=== PATIENT | female | born 1965 | race Caucasian/White ===

== ENCOUNTER 2016-10-28 06:12 | Day surgery (SDC) | payer BC ==
[2016-10-23 16:37] VITALS: BMI 37.8
--- NOTE | 2016-10-27 22:06 | HP ---
Past Medical History - Primary Care Physician PCP:: Corrina Garcias - Admission Chief Complaint: Irregular bleeding History of Present Illness: 51 year old white female G3,Ab2,P1 who was seen on August 14, 2016 complaining of irregular heavy vaginal bleeding. She reported bleeding on July 18 with spotting and then bled 4 to 5 days. Prior to that time she reported bleeding for every 3 to 4 months with a heavy flow. Blood work at that time revealed elevated FSH and TSH levels. Pap smear at that time was negative and HPV was negative. A pelvic ultrasound performed at that time revealed a uterus that was 8 by 7 by 4 cm with four fibroids present with one submucosal. The endometrial lining was ill defined measuring 1.1 cm. Both ovaries were normal. History Source: Patient Limitations to Obtaining History: No Limitations - Past Medical History Reproductive: Yes: Fibroids ...: 3 ...Para: 1 ...Spon : 2 Endocrine: Yes: Diabetes Mellitus, Hypothyroidism Additional Medical History: Asthma - Past Surgical History Past Surgical History: Yes: (1990) Hx Myomectomy: No Hx Transabdominal Cerclage: No - Smoking History Smoking history: Former smoker Have you smoked in the past 12 months: No - Alcohol/Substance Use Hx Alcohol Use: Yes (SOCIALLY) - Social History History of Recent Travel: No Home Medications - Allergies Allergies/Adverse Reactions: Allergies Allergy/AdvReac Type Severity Reaction Status Date / Time No Known Drug Allergies Allergy Verified 10/23/16 16:37 - Home Medications Home Medications: Ambulatory Orders Enalapril Maleate 2.5 mg PO DAILY 10/23/16 Fluticasone/Vilanterol [Breo Ellipta 100-25 Mcg INH] 1 each IH DAILY 10/23/16 Levothyroxine [Synthroid -] 112 mcg PO DAILY 10/23/16 Metformin HCl [Metformin HCl ER] 1,000 mg PO DAILY 10/23/16 Montelukast Na [Singulair -] 10 mg PO HS 10/23/16 Family Disease History - Family Disease History Family Disease History: Diabetes: Mother, CA: Father (Colon) Review of Systems - Review of Systems Constitutional: reports: No Symptoms Neck: reports: No Symptoms Cardiovascular: reports: No Symptoms Respiratory: reports: No Symptoms Gastrointestinal: reports: No Symptoms Genitourinary: reports: No Symptoms Breasts: reports: No Symptoms Reported 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 Constitutional: Yes: No Distress, Obese Neck: Yes: WNL, Supple Cardiovascular: Yes: WNL, Regular Rate and Rhythm Respiratory: Yes: WNL, Regular, CTA Bilaterally Gastrointestinal: Yes: WNL, Soft ...Rectal Exam: Yes: WNL Pelvis: Yes: WNL External Genitalia: Yes: Normal Internal Exam Deferred: Yes Vaginal Exam: Yes: Normal Cervix: Yes: Normal Uterus: Yes: Normal, Freely Moveable, Anteverted Adnexa: Normal: Bilateral Breast(s): Yes: WNL Neurological: Yes: WNL Psychiatric: Yes: WNL Imaging - Results Ultrasound: Report Reviewed (August 2016 Ill defined endometrial cavity 1.1 cm October 2016 ill defined endometrial cavity .4 cm) Assessment/Plan Irregular menstrual bleeding Postmenopausal FSH levels Hypothyroidism Asthma Obesity Plan: D and C with Hysteroscopy 10/28/16
--- NOTE | 2016-10-28 08:06 | HP ---
History & Physical Update - History History: No Change - Physical Physical: No Change - Assessment Assessment: No Change - Plan Plan: No Change (No further bleeding, explained lining thinner but irregular.)
[2016-10-28] MEDS ORDERED: MIDAZOLAM HCL 2 MG/2 ML SINGLE DOSE VIAL ONE ×2 (08:08→08:25)
[2016-10-28] MEDS ORDERED: PROPOFOL 20 ML ONE ×2 (08:12→08:13)
[2016-10-28] MEDS ORDERED: SUCCINYLCHOLINE CHLORIDE 200 MG/10 ML VIAL ONE (08:13)
[2016-10-28] MEDS ORDERED: ePHEDrine SULFATE 50 MG/1 ML AMPULE ONE (08:43)
--- NOTE | 2016-10-28 08:51 | OP ---
Operative Note - Note: Operative Date: 10/28/16 Pre-Operative Diagnosis: Irregular bleeding. Ill defined endometrial cavity. Elevated FSH. Obesity. Diabetes Operation: D and C with hysteroscopy Surgeon: Reginaldo Kyle Anesthesiologist/SANDBLAST OR SHOTBLAST EQUIPMENT TENDER: Cara Ayala MD Anesthesia: Spinal Specimens Removed: Endometrium Estimated Blood Loss (mls): 10 Operative Report Dictated: Yes
[2016-10-28] MEDS ORDERED: ACETAMINOPHEN 325 MG TABLET (FP) PO PRN (09:03)
[2016-10-28] MEDS ORDERED: IBUPROFEN 400 MG TABLET (FP) PO PRN (09:03)
[2016-10-28] MEDS ORDERED: oxyCODONE HCL 5 MG TABLET PO PRN (09:08)
[2016-10-28] MEDS ORDERED: PROMETHAZINE HCL 25 MG/1 ML VIAL IVPUSH PRN (09:08)
[2016-10-28] MEDS ORDERED: ONDANSETRON 4 MG/2 ML VIAL IVPUSH PRN (09:17)
[2016-10-28 11:37] VITALS: TEMP 97.7
--- NOTE | 2016-10-28 13:15 | OP ---
DATE OF OPERATION: 10/28/2016 PREOPERATIVE DIAGNOSES: 1. Irregular bleeding; FSH in menopausal range; thickened, ill-defined endometrium. 2. Diabetes. 3. Obesity. POSTOPERATIVE DIAGNOSES: 1. Irregular bleeding; FSH in menopausal range; thickened, ill-defined endometrium. 2. Diabetes. 3. Obesity. OPERATION: Dilatation and curettage, hysteroscopy. SURGEON: Reginaldo Kyle MD ANESTHESIA: Spinal with Cara Ayala MD. SPECIMEN: Endometrial curettings. BLOOD LOSS: 10 mL FLUIDS: 600 mL DESCRIPTION OF PROCEDURE: Under spinal anesthesia, the patient was placed in the dorsal lithotomy position, prepped and draped in the usual sterile manner. A pelvic examination was performed revealing a uterus that was anterior, normal in size and shape. Adnexa not able to be palpated. A weighted speculum was inserted in the vagina. The anterior lip of the cervix was grasped with a sharp-tooth tenaculum. The uterus was sounded to 7 cm. With the use of a 5-mm hysteroscope, the cervix was then dilated to allow hysteroscopic visualization of the endometrial cavity. It was noted on the right lateral wall, there was some proliferative-type tissue. No polyps or fibroids were detected. With these findings noted, the hysteroscope was then removed. The cervix was then dilated. Curettage was performed. Proliferative-type tissue was obtained. The patient tolerated the procedure well and brought to recovery room in satisfactory condition. Dao [id number]
[2016-10-28 14:00] VITALS: BP 122/76; PULSE 76
--- NOTE | 2016-10-29 12:57 | PATH ---
Surgical Pathology Report Patient Name: JACOB BRUNO [facility]. Rec. #: [id number] /Age/Gender: 1965 (Age: 51) / F Account: [id number] Location: [facility] SURGICAL Taken: 10/28/2016 Received: 10/28/2016 Reported: 10/29/2016 Physicians: Reginaldo Kyle M.D. Specimen(s) Received ENDOMETRIAL CURETTINGS Clinical History 51-year-old, irregular bleeding, increased FSB Endometrium 4 mm, ill-defined Final Diagnosis ENDOMETRIUM, CURETTING: PROLIFERATIVE ENDOMETRIUM, PORTIONS OF MYOMETRIAL TISSUE SOME WITH ADMIXED GLANDS SUGGESTIVE OF ADENOMYOSIS, AND BENIGN CERVICAL TISSUE. NO ENDOMETRIAL HYPERPLASIA OR CARCINOMA IDENTIFIED. Electronically Signed Zay Pastor M.D. Gross Description Received in formalin labeled "endometrial curettings," is a 4.5 x 4.0 x 0.4 cm aggregate of lance-pink soft tissue fragments admixed with blood clot. The formalin is filtered and the specimen is entirely submitted in 5 cassettes. /10/28/2016 [facility]10/28/2016
== END 2016-10-28 13:55 | disposition home or self-care (01) ==
LOC: JASU-SURG 06:12
PROVIDERS: ATTEND Obstetrics & Gynecology
PROC: 0UDB8ZX Extraction of Endometrium, Via Natural or Artificial Opening Endoscopic, Diagnostic (ICD-10-PCS; principal; 2016-10-28 08:00)
DX: N93.8 Other specified abnormal uterine and vaginal bleeding (principal); R93.8 Abnormal findings on diagnostic imaging of other specified body structures; E11.9 Type 2 diabetes mellitus without complications; E66.9 Obesity, unspecified
CPT/HCPCS: 36415; 84702; 88305-TC; 94760

== ENCOUNTER 2019-12-27 06:35 | Inpatient (IN) | payer BC ==
[2019-12-21 11:04] VITALS: BMI 41.1
[2019-12-27] MEDS ORDERED: VANCOMYCIN 1,000 MG VIAL (RESTRICTED TO ID ONLY) ONE (07:18)
[2019-12-27] MEDS ORDERED: ceFAZolin SODIUM 1 GM VIAL ONE ×3 (07:18→10:04)
[2019-12-27] MEDS ORDERED: CELECOXIB 200 MG CAPSULE PO ONE (07:44)
[2019-12-27] MEDS ORDERED: TRANEXAMIC ACID 1000 MG/10 ML VIAL IVPUSH ONE (07:44)
[2019-12-27] MEDS ORDERED: [UNRECOGNIZED DRUG - OTHER] IVPB ONE (07:44)
[2019-12-27] MEDS ORDERED: CEFAZOLIN IVPB ONE (07:44)
--- NOTE | 2019-12-27 07:58 | HP ---
Satellite [facility] - Chief Complaint Chief Complaint: left knee pain - Past Medical History Allergies/Adverse Reactions: Allergies Allergy/AdvReac Type Severity Reaction Status Date / Time No Known Drug Allergies Allergy Verified 12/21/19 10:53 ...LMP: 07/18/16 Endocrine: Yes: Diabetes Mellitus, Hypothyroidism Additional Medical History: Asthma - Current Medications Current Medications: Home Medications Medication Instructions Recorded Enalapril Maleate 5 mg PO DAILY 10/23/16 Fluticasone/Vilanterol [Breo 1 each IH DAILY 10/23/16 Ellipta 100-25 Mcg INH] Levothyroxine [Synthroid -] 112 mcg PO DAILY 10/23/16 Montelukast Na [Singulair -] 10 mg PO HS 10/23/16 metFORMIN HCL [Metformin HCl ER] 1,000 mg PO DAILY 10/23/16 Acetaminophen W/ Codeine #3 1 tab PO Q4H PRN 12/21/19 [Tylenol # 3 -] Aspirin [Aspirin EC] 81 mg PO DAILY 12/21/19 Escitalopram Oxalate [Lexapro -] 10 mg PO DAILY 12/21/19 Isosorbide Mononitrate [Imdur -] 30 mg PO DAILY 12/21/19 Rufus-3/Dha/Epa/Fish Oil [Fish Oil 1 each PO DAILY 12/21/19 500 mg Softgel] Zolpidem Tartrate [Ambien] 10 mg PO HS 12/21/19 Satellite Physical Exam - Physical Examination Vital Signs: Vital Signs Period Temp Pulse Resp BP Sys/Vargas Pulse Ox Last 24 Hr 98.4 F-98.4 F 84-84 18-18 137-137/88-88 97-97 General Appearance: Well Nourished, Well Developed, Alert & Oriented x3 ENT: Clear Lung: Normal air movement Extremities: Other (left knee- + swelling, + ttp, decr rom, nvi, xrays show grade 4 tricompartmental djd) Neurological: Intact, Alert, Oriented Satellite Impression/Plan - Impression/Plan Impression: left knee djd Operative Procedure: left purnima tkr Date to be Performed: 12/27/19
[2019-12-27] MEDS ORDERED: TRANEXAMIC ACID 1000 MG/10 ML VIAL ONE (08:11)
[2019-12-27] MEDS ORDERED: PROPOFOL 20 ML ONE ×5 (08:11→10:37)
[2019-12-27] MEDS ORDERED: LIDOCAINE HCL/PF 2% SDV 5ML VIAL ONE (08:11)
[2019-12-27] MEDS ORDERED: ePHEDrine SULFATE 50 MG/1 ML AMPULE ONE (08:11)
[2019-12-27] MEDS ORDERED: PHENYLEPHRINE HCL 10 MG/1 ML SINGLE DOSE VIAL ONE (08:11)
[2019-12-27] MEDS ORDERED: SUCCINYLCHOLINE CHLORIDE 200 MG/10 ML SYRINGE ONE (08:12)
[2019-12-27] MEDS ORDERED: CELECOXIB 200 MG CAPSULE ONE (08:16)
[2019-12-27] MEDS ORDERED: MIDAZOLAM HCL 2 MG/2 ML SINGLE DOSE VIAL ONE ×2 (08:17→09:12)
[2019-12-27] MEDS ORDERED: BUPIVACAINE LIPOSOME/PF (EXPAREL) 266 MG/20 ML VIAL ONE (08:17)
[2019-12-27] MEDS ORDERED: SODIUM CHLORIDE 0.9% P/F 10 ML VIAL IJ ONE (08:18)
[2019-12-27] MEDS ORDERED: MAGNESIUM HYDROX 2400MG/30ML ORAL SUSPENSION 30 ML CUP PO PRN (09:30)
[2019-12-27] MEDS ORDERED: MAG HYDROX/AL HYDROX/SIMETH 30 ML UNIT-DOSE CUP PO PRN (09:30)
[2019-12-27] MEDS ORDERED: ONDANSETRON 4 MG/2 ML VIAL IVPUSH PRN ×2 (09:30→11:37)
[2019-12-27] MEDS ORDERED: LACTATED RINGERS SOLUTION 1,000 ML IV SCH (09:30)
[2019-12-27] MEDS ORDERED: DEXAMETHASONE SOD PHOSPHATE 4 MG/1 ML VIAL ONE (09:35)
[2019-12-27] MEDS ORDERED: ONDANSETRON 4 MG/2 ML VIAL ONE (09:35)
--- NOTE | 2019-12-27 11:23 | OP ---
Operative Note - Note: Operative Date: 12/27/19 (sofi) Pre-Operative Diagnosis: left knee djd Operation: left purnima tkr Post-Operative Diagnosis: Same as Pre-op Surgeon: Inder Fair [employer] Library Director: Markus Schroeder) Anesthesiologist/OPERATIONS INTERN: Phyllis Haney Anesthesia: Spinal, Local Specimens Removed: bone fragments Estimated Blood Loss (mls): 200
[2019-12-27] MEDS ORDERED: oxyCODONE HCL 5 MG TABLET PO PRN (11:37)
[2019-12-27] MEDS ORDERED: ACETAMINOPHEN 1000 MG/100 ML VIAL (NON FORMULARY) IVPB ONE (11:37)
[2019-12-27] MEDS ORDERED: ACETAMINOPHEN INJECTION 100 ML IVPB ONE (12:00)
[2019-12-27] MEDS: LEVOTHYROXINE NA 112 MCG TABLET (FP) PO SCH (13:42)
[2019-12-27] MEDS: ISOSORBIDE MONONITRATE 30 MG TAB.SR.24H (FP) PO SCH (13:47)
[2019-12-27] MEDS: ESCITALOPRAM OXALATE 10 MG TABLET PO SCH (13:47)
[2019-12-27] MEDS: ENALAPRIL MALEATE 2.5 MG TABLET (FP) PO SCH (13:48)
[2019-12-27] MEDS: PANTOPRAZOLE 40 MG TABLET PO SCH (13:48)
[2019-12-27] MEDS: SENNOSIDES/DOCUSATE COMBO (SENNA PLUS) TABLET (UD) PO SCH ×2 (13:48→22:04)
[2019-12-27] MEDS: MULTIVITAMINS (DAILY MVI) TABLET (FP) PO SCH (13:48)
[2019-12-27] MEDS: LACTATED RINGERS SOLUTION 1,000 ML IV SCH (13:51)
[2019-12-27] MEDS ORDERED: REFRIGERATED ANITBIOTICS ONE (17:08)
[2019-12-27] MEDS: CEFAZOLIN 3 GM in DEXTROSE 5%-WATER - 100 ML IVPB SCH (18:07)
[2019-12-27] MEDS: ACETAMINOPHEN 325 MG TABLET (FP) PO SCH (18:07)
--- NOTE | 2019-12-27 19:50 | SPEC ---
DATE OF OPERATION: 12/27/2019 PREOPERATIVE DIAGNOSIS: Degenerative joint disease, left knee. POSTOPERATIVE DIAGNOSIS: Degenerative joint disease, left knee. PROCEDURE: Left total knee replacement with robotic-assisted navigation (Makoplasty). SURGICAL ATTENDING: Inder Fair M.D. TONE REGULATOR: Pranav Deleon SECOND MANAGER FURNITURE: Agus Patel M.D. ANESTHESIA: Regional and spinal. CLOSURE: A Triathlon knee system with a 2 femur, 2 tibia with a 50-mm extension, a 9 polyethylene, and 32 patella. Number 1 Vicryl fascia, 0 and 2-0 subcutaneous, and 3-0 Monocryl with skin glue for skin, 4-0 undyed Vicryl for pin site. ESTIMATED BLOOD LOSS: Less than 100 mL. COMPLICATIONS: None. CONDITION: To recovery room in stable condition. DESCRIPTION OF OPERATIVE PROCEDURE: Patient was taken to the operating room on December 27, 2019. Regional and general anesthesia was administered by the anesthesiologist. IV Kefzol and TXA were administered by the anesthesiologist. Well-padded pneumatic tourniquet was placed on the proximal thigh. The left lower extremity was prepped and draped in the usual sterile fashion. The leg was exsanguinated with an Esmarch bandage, and tourniquet was inflated to 275 mmHg. A 12 to 15-cm longitudinal midline incision was incised while centered over the patella. The dissection was carried down to the level of the extensor mechanism with sufficient flaps made to adequately perform the procedure. A medial parapatellar arthrotomy was then performed. We made a cuff of tissue on the patella for later closure. The patella was inverted, the knee was flexed up. The fat pad was excised. The subperiosteal dissection was on the anteromedial proximal tibia around towards the direction of the MCL. The ACL and the PCL were transected and debrided. The meniscal remnants of the medial and lateral meniscus were debrided and removed. This allowed the knee to be able to "be brought forward." The checkpoints were malleted into the tibia and into the femur. Two threaded pins were drilled anteroposteriorly proximal to the knee through the previous incision, through the anterior cortex, then just engaging the posterior cortex. To these pins was assembled the femoral navigation array. One handbreadth below the tibial tubercle, 2 stab incisions were used to drill 2 threaded pins in parallel fashion into the tibia, again through the anterior cortex and just engaging the posterior cortex. To these pins was fastened the tibial arrays. The knee was then registered with the navigation device with center of rotation of the hip, medial and lateral malleoli, both checkpoints, and multiple points on both the femur and the tibia to ensure excellent registration. The navigation device was directed off the "top of the bubbles" on both the femur and the tibia. The navigation passed within less than 0.5 mm to plan. The knee was then thoroughly inspected to remove all osteophytes both medially, laterally, and on the femur and the tibia, and whatever osteophytes were available for dissection. The knee was then taken to extension and to flexion, and stressed in both varus and valgus to assess flexion gaps. The virtual position of the components on the navigation device were then manipulated to optimize the position and to ensure equal gaps in both flexion and extension, and both medially and laterally. The robot was then brought into the field and was registered. The cuts were then made both on the femur and on the tibia as to plan. All osteophytes posteriorly were then removed as well. The gaps were then measured again in flexion and extension to be equal in both flexion and extension and medial and laterally. The femoral notch was then made, as we were doing a posterior stabilizing component, with the appropriate sized box. Trial reduction of the femur achieved excellent dson-en-aqfy fit. A tibial baseplate of appropriate polyethylene thickness was "floated in the knee." It was ensured to be in the excellent position by navigation devices and was pinned in place. The knee was taken through a range of motion, and found to have excellent stability throughout flexion and extension. The patella was calibrated for thickness and osteotomized down to the appropriate level. The appropriate lollipop was used to drill the lug holes in the patella and the trial button was applied. The knee was taken through a range of motion and found to have excellent tracking of the patella, and patella from full extension to full flexion. Trial components were removed, the keel was punched and drilled, and a sclerotic bone on the tibia was drilled to help with cement interdigitation. The knee was thoroughly irrigated with the pulse antibiotic multiple sclerosis nurse. The real components were then cemented in using monitored arrangement cement techniques with antibiotic cement, and pressurization and extension. After the cement was hardened, the knee was thoroughly inspected to remove any extra cement. The real polyethylene component was then clipped into place. Range of motion, stability, and tracking were as described earlier. The checkpoints and the pins were removed. The knee was thoroughly irrigated with antibiotic irrigation. Vancomycin powder was placed into the knee for antibiotic prophylaxis. The medial parapatellar arthrotomy was then closed using number 1 Vicryl interrupted suture. After closure of the deep layer, the knee was taken through a range of motion, and found to have excellent stability of the patella with no dislocation and no undue tension on the repair. The subcutaneous was pulse antibiotic irrigated, and was then closed with 2-0 Vicryl, 3-0 Monocryl subcuticular with the skin glue for the skin. The distal tibial pin site was irrigated thoroughly as well and then closed with 4-0 undyed Vicryl. A sterile Aquacel dressing was applied, followed by a Arias dressing. Tourniquet was deflated. Total tourniquet time was approximately 75 minutes. No complications. Patient was awakened from anesthesia and transferred to recovery room in stable condition. Postoperative x-rays revealed excellent position of the components. Dao [id number]
[2019-12-27] MEDS: oxyCODONE HCL 10 MG SUSTAINED ACTING TABLET PO SCH (22:04)
[2019-12-27] MEDS: MONTELUKAST NA 10 MG TABLET PO SCH (22:05)
[2019-12-28] MEDS: ZOLPIDEM TARTRATE 5 MG TABLET PO PRN ×2 (00:44→22:10)
[2019-12-28] MEDS: oxyCODONE HCL 5 MG TABLET PO PRN ×2 (00:44→12:18)
[2019-12-28] MEDS: ACETAMINOPHEN 325 MG TABLET (FP) PO SCH ×4 (00:45→17:33)
[2019-12-28] MEDS ORDERED: REFRIGERATED ANITBIOTICS ONE (01:04)
[2019-12-28] MEDS: CEFAZOLIN 3 GM in DEXTROSE 5%-WATER - 100 ML IVPB SCH (01:09)
[2019-12-28] MEDS: LEVOTHYROXINE NA 112 MCG TABLET (FP) PO SCH (06:28)
[2019-12-28] MEDS: ASPIRIN 325 MG TABLET PO SCH (08:00)
--- NOTE | 2019-12-28 08:10 | PN ---
Progress Note (short form) - Note Progress Note: Ortho Pt seen and examined s/p left purnima tkr pod #1 Selected Entries 12/28/19 06:52 Temperature 98.3 F Pulse Rate 87 Respiratory 18 Rate Blood Pressure 139/80 dressing c/d/i , rom 0-40, calf soft, nt ,nvi a/p PT dvt ppx pain control d/c home today/tomorrow pending PT eval
[2019-12-28 08:37] LABS: HEMATOCRIT 39.3 % (32.4-45.2); MCH 29.9 pg (25.7-33.7); MCHC 33.1 g/dl (32.0-36.0); MEAN CELL VOLUME 90.3 fl (80-96); MEAN PLT VOLUME 8.2 fl (7.5-11.1); PLATELET COUNT 347 K/MM3 (134-434); RBC 4.35 M/mm3 (3.60-5.2); RDW 13.4 % (11.6-15.6); WHITE BLOOD COUNT 7.8 K/mm3 (4.0-10.8)
[2019-12-28] MEDS: oxyCODONE HCL 10 MG SUSTAINED ACTING TABLET PO SCH ×2 (09:10→22:10)
[2019-12-28] MEDS: PANTOPRAZOLE 40 MG TABLET PO SCH (09:20)
[2019-12-28] MEDS: MULTIVITAMINS (DAILY MVI) TABLET (FP) PO SCH (09:30)
[2019-12-28] MEDS: ENALAPRIL MALEATE 2.5 MG TABLET (FP) PO SCH (09:30)
[2019-12-28] MEDS: ESCITALOPRAM OXALATE 10 MG TABLET PO SCH (09:37)
[2019-12-28] MEDS: ISOSORBIDE MONONITRATE 30 MG TAB.SR.24H (FP) PO SCH (09:37)
[2019-12-28] MEDS: SENNOSIDES/DOCUSATE COMBO (SENNA PLUS) TABLET (UD) PO SCH ×2 (09:38→22:11)
[2019-12-28] MEDS: BUDESONIDE/FORMETEROL FUMARATE 80/4.5 mcg INHALER IH SCH ×2 (10:40→22:45)
--- NOTE | 2019-12-28 14:55 | PN ---
Progress Note (short form) - Note Progress Note: ANESTHESIA POSTOP 54 YO FEMALE POD#1 S/P TKA Patient with adequate pain control responding to PO meds. Tolerating PO with some nausea. VSS, Afebrile Continue current care. Encouraged IS and active participation in PT. No anesthetic complications.
[2019-12-28] MEDS: LACTATED RINGERS SOLUTION 1,000 ML IV SCH (16:00)
[2019-12-28] MEDS: traMADol HCL 50 MG TABLET PO PRN (17:28)
[2019-12-28] MEDS: MONTELUKAST NA 10 MG TABLET PO SCH (22:10)
[2019-12-29] MEDS: ACETAMINOPHEN 325 MG TABLET (FP) PO SCH ×3 (00:05→06:08)
[2019-12-29] MEDS: LEVOTHYROXINE NA 112 MCG TABLET (FP) PO SCH (06:08)
[2019-12-29 06:20] VITALS: BP 136/82; PULSE 108; TEMP 97.9
--- NOTE | 2019-12-29 08:01 | DS ---
Physical Examination Vital Signs: Vital Signs Temperature 97.9 F 12/29/19 06:19 Pulse Rate 108 H 12/29/19 06:19 Respiratory Rate 18 12/29/19 06:19 Blood Pressure 136/82 12/29/19 06:19 O2 Sat by Pulse Oximetry (%) 95 12/29/19 06:19 Labs: CBC, BMP 12/28/19 07:15 Discharge Summary Problems reviewed: Yes Reason For Visit: OSTEOARTHRITIS Procedures: Principal: left tkr Hospital Course: admitted for elective left purnima tkr, post-op per protocol, stable for d/c Condition: Good - Instructions Diet, Activity, Other Instructions: Post-op Instructions-Total Knee Replacement Call the office for a follow-up appointment in 1 week - [phone] Aspirin 325mg daily for 6 weeks. Pain medication was sent into your pharmacy. Apply Graduated Compression Stockings (TEDs) to both lower extremities- remove daily for hygiene ONLY Apply Sequential Compression Device (SCDs) to both Lower extremities remove for PT and hygiene ONLY Apply cold packs to affected area for 15 minutes every 2 hours. Physical Therapist will come to your home for the first 5 days. You will be set up with outpatient PT at your first post-operative visit. Patient may ambulate as tolerated-encourage self care (at least every 2-3 hours while awake) with walker or cane Maintain Aquacel (waterproof) dressing to operative wound (will be removed by surgeon at first office visit) Shower with Aquacel dressing in place-if Aquacel integrity compromised, remove and apply dry sterile dressing and notify Orthopedist. DO NOT SHOWER unless Orthopedists approves without Aquacel dressing CONTACT THE OFFICE FOR ANY CHANGE IN YOUR CONDITION (for example-fever greater than 102 degrees, excessive bleeding from operative site, purulent drainage, severe swelling or pain) GO TO THE EMERGENCY ROOM IF THERE IS A MEDICAL EMERGENCY Knee Precautions: * Keep a rolled towel under affected heel while in bed or chair (to keep knee in extension) * Keep affected leg elevated except during mealtimes * DO NOT PLACE PILLOW UNDER AFFECTED KNEE * If you have any questions, please do not hesitate to call the office - [phone]. Referrals: Agus Patel MD [Staff Physician] - - Home Medications Comprehensive Discharge Medication List: Ambulatory Orders Enalapril Maleate 5 mg PO DAILY 10/23/16 Fluticasone/Vilanterol [Breo Ellipta 100-25 Mcg INH] 1 each IH DAILY 10/23/16 Levothyroxine [Synthroid -] 112 mcg PO DAILY 10/23/16 Montelukast Na [Singulair -] 10 mg PO HS 10/23/16 metFORMIN HCL [Metformin ER Osmotic] 1,000 mg PO DAILY 10/23/16 Acetaminophen W/ Codeine #3 [Tylenol # 3 -] 1 tab PO Q4H PRN 12/21/19 Escitalopram Oxalate [Lexapro -] 10 mg PO DAILY 12/21/19 Isosorbide Mononitrate [Imdur -] 30 mg PO DAILY 12/21/19 Wingina-3/Dha/Epa/Fish Oil [Fish Oil 500 mg Softgel] 1 each PO DAILY 12/21/19 Zolpidem Tartrate [Ambien] 10 mg PO HS 12/21/19 Aspirin [ASA -] 325 mg PO DAILY@0800 tablet 12/28/19 Oxycodone HCl/Acetaminophen [Percocet 5-325 mg Tablet -] 1 - 2 tab PO Q6H #50 tab MDD 8 12/28/19
--- NOTE | 2019-12-29 08:01 | PN ---
Progress Note (short form) - Note Progress Note: Ortho Pt seen and examined s/p left purnima tkr pod #2 Selected Entries 12/29/19 06:19 Temperature 97.9 F Pulse Rate 108 H Respiratory 18 Rate Blood Pressure 136/82 Laboratory Tests 12/28/19 07:15 WBC 7.8 Hgb 13.0 Hct 39.3 Plt Count 347 dressing c/d/i , rom 0-40, calf soft, nt ,nvi a/p PT dvt ppx pain control d/c home today f/u in 1 week
[2019-12-29] MEDS: ASPIRIN 325 MG TABLET PO SCH (08:17)
[2019-12-29] MEDS: traMADol HCL 50 MG TABLET PO PRN (08:17)
[2019-12-29 08:26] LABS: HEMATOCRIT 36.6 % (32.4-45.2); HEMOGLOBIN 12.3 GM/dl (10.7-15.3); MCH 30.5 pg (25.7-33.7); MCHC 33.7 g/dl (32.0-36.0); MEAN CELL VOLUME 90.3 fl (80-96); MEAN PLT VOLUME 8.1 fl (7.5-11.1); PLATELET COUNT 313 K/MM3 (134-434); RBC 4.05 M/mm3 (3.60-5.2); RDW 13.1 % (11.6-15.6); WHITE BLOOD COUNT 7.8 K/mm3 (4.0-10.8)
[2019-12-29] MEDS: oxyCODONE HCL 10 MG SUSTAINED ACTING TABLET PO SCH (09:22)
[2019-12-29] MEDS: PANTOPRAZOLE 40 MG TABLET PO SCH (09:22)
[2019-12-29] MEDS: ENALAPRIL MALEATE 2.5 MG TABLET (FP) PO SCH (09:22)
[2019-12-29] MEDS: ESCITALOPRAM OXALATE 10 MG TABLET PO SCH (09:23)
[2019-12-29] MEDS: ISOSORBIDE MONONITRATE 30 MG TAB.SR.24H (FP) PO SCH (09:23)
[2019-12-29] MEDS: SENNOSIDES/DOCUSATE COMBO (SENNA PLUS) TABLET (UD) PO SCH (09:23)
[2019-12-29] MEDS: MULTIVITAMINS (DAILY MVI) TABLET (FP) PO SCH (09:23)
[2019-12-29] MEDS: BUDESONIDE/FORMETEROL FUMARATE 80/4.5 mcg INHALER IH SCH (09:27)
--- NOTE | 2019-12-29 15:20 | PATH ---
Surgical Pathology Report Patient Name: JACOB BRUNO Med. Rec. #: [id number] /Age/Gender: 1965 (Age: 54) / F Account: [id number] Location: [facility] MED-SURG Taken: 12/27/2019 Received: 12/27/2019 Reported: 12/29/2019 Physicians: Inder Fair M.D. Specimen(s) Received LEFT FEMUR/TIBIA BONE Clinical History Osteoarthritis, left knee Final Diagnosis FEMUR/TIBIA, LEFT, TOTAL KNEE REPLACEMENT: DEGENERATIVE JOINT DISEASE. Electronically Signed Iram Oswald M.D. Gross Description Received in formalin, labeled "left total knee replacement" is a 10.5 x 8 x 2.5 cm aggregate of portions of cartilage capped bone and fibroadipose tissue. The articular surfaces appear granular and show areas of eburnation. Architecture Department Chair tissue is submitted in one cassette after decalcification. AE/12/28/2019 ebram/12/28/2019
== END 2019-12-29 12:00 | disposition home or self-care (01) | DRG 470 ==
LOC: FASUSAT 06:35 → EDSTATUS 08:00 → FM/S 13:22 → FASUSAT 13:22 → EDSTATUS 12-28 08:00 → FM/S 12-28 13:33
PROVIDERS: ADMIT Orthopaedic Surgery; ATTEND Orthopaedic Surgery
PROC: 8E0Y0CZ Robotic Assisted Procedure of Lower Extremity, Open Approach (ICD-10-PCS; 2019-12-27)
PROC: 0SRD0JZ Replacement of Left Knee Joint with Synthetic Substitute, Open Approach (ICD-10-PCS; principal; 2019-12-27 09:47)
DX: M17.12 Unilateral primary osteoarthritis, left knee (principal); Z68.41 Body mass index [BMI] 40.0-44.9, adult; E11.9 Type 2 diabetes mellitus without complications; E03.9 Hypothyroidism, unspecified; J45.909 Unspecified asthma, uncomplicated; E66.01 Morbid (severe) obesity due to excess calories
CPT/HCPCS: 36415; 73560-TC-LT-FY; 82962; 85027; 88304-TC; 88311-TC; 94760; 97116-GP; 97163-GP; J0131

== ENCOUNTER 2020-10-29 09:26 | Inpatient (IN) | payer BC ==
[2020-10-25 18:28] VITALS: BMI 44.6
[2020-10-29] MEDS ORDERED: MIDAZOLAM HCL 2 MG/2 ML SINGLE DOSE VIAL ONE ×2 (13:24→16:47)
[2020-10-29] MEDS ORDERED: BUPIVACAINE LIPOSOME/PF (EXPAREL) 266 MG/20 ML VIAL ONE (13:24)
[2020-10-29] MEDS ORDERED: BUPIVACAINE HCL/PF 2.5 MG/ML - 30 ML VIAL IJ ONE ×4 (13:24→16:36)
[2020-10-29] MEDS ORDERED: ROCURONIUM BROMIDE 50 MG/5 ML SYRINGE ONE (14:25)
[2020-10-29] MEDS ORDERED: fentaNYL CITRATE 250 MCG/5 ML VIAL ONE (14:25)
[2020-10-29] MEDS ORDERED: SUCCINYLCHOLINE CHLORIDE 200 MG/10 ML SYRINGE ONE (14:25)
[2020-10-29] MEDS ORDERED: PROPOFOL 20 ML ONE ×2 (14:25)
[2020-10-29] MEDS ORDERED: LIDOCAINE HCL/PF 2% SDV 5ML VIAL ONE (14:56)
[2020-10-29] MEDS ORDERED: ONDANSETRON 4 MG/2 ML VIAL ONE ×2 (15:14→16:39)
[2020-10-29] MEDS ORDERED: DEXAMETHASONE SOD PHOSPHATE 4 MG/1 ML VIAL ONE (15:14)
[2020-10-29] MEDS ORDERED: EPHEDRINE SULFATE/0.9% NACL/PF 50 MG/10 ML SYRINGE NR ONE (15:26)
[2020-10-29] MEDS ORDERED: NEOSTIGMINE METHYLSULFATE 0.5 MG/1 ML - 10 ML MDV ONE (16:38)
[2020-10-29] MEDS ORDERED: GLYCOPYRROLATE 0.2 MG/1 ML VIAL ONE (16:39)
[2020-10-29] MEDS ORDERED: FAMOTIDINE 20 MG/50 ML IVPB 20 MG/50 ML MG IVPB ONE (16:47)
[2020-10-29] MEDS ORDERED: METOCLOPRAMIDE HCL INJECTION 10 MG/2 ML VIAL ONE (16:47)
[2020-10-29] MEDS ORDERED: ONDANSETRON 4 MG/2 ML VIAL IVPUSH PRN ×2 (16:48→17:14)
[2020-10-29] MEDS ORDERED: HYDROmorphone HCL/PF 1 MG/ML VIAL IVPB PRN (16:50)
[2020-10-29] MEDS ORDERED: SODIUM CHLORIDE 1,000 ML IV SCH (17:00)
[2020-10-29] MEDS: LORazepam 2 MG/ML SDV VIAL IVPUSH ONE ×2 (17:03→18:25)
[2020-10-29] MEDS ORDERED: LORazepam 2 MG/ML SDV VIAL ONE (17:07)
[2020-10-29] MEDS: METOCLOPRAMIDE HCL INJECTION 10 MG/2 ML VIAL IVPUSH SCH ×3 (17:10→23:33)
[2020-10-29] MEDS ORDERED: FAMOTIDINE 20 MG PREMIXED IVPB IVPB ONE (17:12)
[2020-10-29] MEDS ORDERED: LACTATED RINGERS SOLUTION 1,000 ML IV SCH (17:15)
[2020-10-29 17:35] LABS: HEMOGLOBIN 14.7 GM/dl (10.7-15.3); MCH 29.5 pg (25.7-33.7); MCHC 34.2 g/dl (32.0-36.0); MEAN CELL VOLUME 86.2 fl (80-96); PLATELET COUNT 318 10^3/uL (134-434); RDW 13.1 % (11.6-15.6); WHITE BLOOD COUNT 10.1 K/mm3 (4.0-10.8)
[2020-10-29 17:44] LABS: ALBUMIN 3.9 g/dl (3.4-5.0); BILIRUBIN,TOTAL 0.6 mg/dl (0.2-1); TOT PROT 7.3 g/dl (6.4-8.2)
[2020-10-29] MEDS: HYDROmorphone HCL/PF 1 MG/ML VIAL IVPB PRN (19:38)
[2020-10-29] MEDS: FAMOTIDINE 20 MG/50 ML IVPB 20 MG/50 ML MG IVPB SCH (21:50)
[2020-10-29 22:54] LABS: HEMOGLOBIN 14.4 GM/dl (10.7-15.3); RDW 13.2 % (11.6-15.6)
[2020-10-29 22:58] LABS: HEMATOCRIT 42.8 % (32.4-45.2); MCH 29.1 pg (25.7-33.7); MCHC 33.6 g/dl (32.0-36.0); MEAN CELL VOLUME 86.8 fl (80-96); PLATELET COUNT 287 10^3/uL (134-434); RBC 4.93 M/mm3 (3.60-5.2); WHITE BLOOD COUNT 11.9 K/mm3 (4.0-10.8)
[2020-10-29 23:02] LABS: ALBUMIN 3.8 g/dl (3.4-5.0); BILIRUBIN,TOTAL 0.5 mg/dl (0.2-1); CALCIUM 8.4 mg/dl (8.5-10); CREATININE 0.9 mg/dl (0.55-1.3); TOT PROT 7.2 g/dl (6.4-8.2)
[2020-10-30] MEDS: HYDROmorphone HCL/PF 1 MG/ML VIAL IVPB PRN ×2 (01:39→07:59)
[2020-10-30] MEDS: METOCLOPRAMIDE HCL INJECTION 10 MG/2 ML VIAL IVPUSH SCH ×2 (04:47→10:27)
[2020-10-30 08:37] LABS: ALBUMIN 3.6 g/dl (3.4-5.0); BILIRUBIN,TOTAL 0.4 mg/dl (0.2-1); CALCIUM 8.6 mg/dl (8.5-10); CREATININE 0.8 mg/dl (0.55-1.3); TOT PROT 6.9 g/dl (6.4-8.2)
[2020-10-30 08:56] LABS: HEMATOCRIT 40.4 % (32.4-45.2); HEMOGLOBIN 13.7 GM/dl (10.7-15.3); MCH 29.3 pg (25.7-33.7); MCHC 33.9 g/dl (32.0-36.0); MEAN CELL VOLUME 86.2 fl (80-96); MEAN PLT VOLUME 7.9 fl (7.5-11.1); PLATELET COUNT 314 10^3/uL (134-434); RBC 4.69 M/mm3 (3.60-5.2); WHITE BLOOD COUNT 11.6 K/mm3 (4.0-10.8)
[2020-10-30] MEDS: FAMOTIDINE 20 MG/50 ML IVPB 20 MG/50 ML MG IVPB SCH (10:27)
[2020-10-30] MEDS ORDERED: ENALAPRIL MALEATE 5 MG TABLET PO SCH (13:30)
[2020-10-30] MEDS ORDERED: ISOSORBIDE MONONITRATE 30 MG TAB.SR.24H (FP) PO SCH (13:30)
[2020-10-30 15:00] VITALS: PULSE 102
[2020-10-30] MEDS ORDERED: amLODIPine BESYLATE 5 MG TABLET (FP) PO ONE (15:30)
[2020-10-30 16:12] VITALS: BP 140/82; TEMP 97.8
== END 2020-10-30 15:56 | disposition home or self-care (01) | DRG 621 ==
LOC: FM/S 09:26
PROVIDERS: ADMIT Surgery; ATTEND Surgery
PROC: 0DB64Z3 Excision of Stomach, Percutaneous Endoscopic Approach, Vertical (ICD-10-PCS; principal; 2020-10-29 12:00)
PROC: 0FB24ZX Excision of Left Lobe Liver, Percutaneous Endoscopic Approach, Diagnostic (ICD-10-PCS; 2020-10-29 12:00)
DX: E66.01 Morbid (severe) obesity due to excess calories (principal); R16.0 Hepatomegaly, not elsewhere classified; E11.9 Type 2 diabetes mellitus without complications; Z68.41 Body mass index [BMI] 40.0-44.9, adult
CPT/HCPCS: 36415; 74240-TC-FY; 80053; 82962; 85027; 86850; 86900; 86901; 88305-TC; 88307-TC; 94760; Q9967

== ENCOUNTER 2021-04-28 16:27 | Emergency (ER) | payer BC ==
[2021-04-28 17:06] VITALS: BP 134/68; PULSE 91; TEMP 98.3; BMI 34.3
[2021-04-28] MEDS ORDERED: DEXAMETHASONE LIQUID 0.5 MG/5 ML PO ONE (18:45)
[2021-04-28] MEDS ORDERED: DEXAMETHASONE SOD PHOSPHATE 10 MG/1 ML VIAL ONE ×2 (19:09→19:11)
[2021-04-30 10:07] LABS: SARS-CoV-2 NAA Not Detected (Not Detected)
== END 2021-04-28 20:35 | disposition home or self-care (01) ==
LOC: JER 16:27
DX: J45.20 Mild intermittent asthma, uncomplicated (principal); J06.9 Acute upper respiratory infection, unspecified; Z11.52 Encounter for screening for COVID-19
CPT/HCPCS: 71046-TC-FY; 87804; 99284-25; C9803; U0003; U0005

== ENCOUNTER 2021-06-04 05:52 | Day surgery (SDC) | payer BC ==
[2021-05-30 16:16] VITALS: BMI 38.6
[2021-06-04] MEDS ORDERED: CEFAZOLIN 2 GM in DEXTROSE 5%-WATER - 50 ML IVPB ONE (06:26)
[2021-06-04] MEDS ORDERED: TRANEXAMIC ACID 1000 MG/10 ML VIAL IVPUSH ONE (06:26)
[2021-06-04] MEDS: CELECOXIB 200 MG CAPSULE PO ONE ×2 (06:50→12:18)
[2021-06-04] MEDS ORDERED: SODIUM CHLORIDE 0.9% P/F 10 ML VIAL IJ ONE (06:55)
[2021-06-04] MEDS ORDERED: MIDAZOLAM HCL 2 MG/2 ML SINGLE DOSE VIAL ONE ×2 (06:55→10:18)
[2021-06-04] MEDS ORDERED: BUPIVACAINE HCL/PF 0.5% (5MG/ML) 10 ML VIAL ONE (06:55)
[2021-06-04] MEDS ORDERED: BUPIVACAINE LIPOSOME/PF (EXPAREL) 266 MG/20 ML VIAL ONE (06:55)
[2021-06-04] MEDS ORDERED: VANCOMYCIN 1,000 MG VIAL (RESTRICTED TO ID ONLY) ONE (07:10)
[2021-06-04] MEDS ORDERED: ceFAZolin SODIUM 1 GM VIAL ONE ×4 (07:10→23:47)
[2021-06-04] MEDS ORDERED: PROPOFOL 20 ML ONE ×2 (07:46)
[2021-06-04] MEDS ORDERED: BUPIVACAINE HCL 50 ML ONE (07:47)
[2021-06-04] MEDS ORDERED: ALBUTEROL SO4 HFA INHALER IH PRN (08:03)
[2021-06-04] MEDS ORDERED: ONDANSETRON 4 MG/2 ML VIAL IVPUSH PRN ×2 (08:07→10:35)
[2021-06-04] MEDS ORDERED: MAG HYDROX/AL HYDROX/SIMETH 30 ML UNIT-DOSE CUP PO PRN (08:07)
[2021-06-04] MEDS ORDERED: LACTATED RINGERS SOLUTION 1,000 ML IV SCH ×2 (08:15→10:45)
[2021-06-04] MEDS ORDERED: DEXAMETHASONE SOD PHOSPHATE 4 MG/1 ML VIAL ONE (08:46)
[2021-06-04] MEDS ORDERED: ONDANSETRON 4 MG/2 ML VIAL ONE ×2 (08:46→09:56)
[2021-06-04] MEDS ORDERED: ZOLPIDEM TARTRATE 5 MG TABLET PO PRN (08:48)
[2021-06-04] MEDS ORDERED: TRANEXAMIC ACID 1000 MG/10 ML VIAL ONE (09:03)
[2021-06-04] MEDS ORDERED: PATIENT'S OWN MEDICATION (NON-FORMULARY) (Metformin Hcl [Metformin Er Osmotic] 1,000 MG Ta PO SCH (10:00)
[2021-06-04] MEDS ORDERED: LEVOTHYROXINE NA 112 MCG TABLET (FP) PO SCH (10:00)
[2021-06-04] MEDS ORDERED: ACETAMINOPHEN INJECTION 100 ML IVPB ONE (10:35)
[2021-06-04] MEDS ORDERED: oxyCODONE HCL 5 MG TABLET PO PRN (10:35)
[2021-06-04] MEDS: ACETAMINOPHEN 1000 MG/100 ML BAG IVPB ONE ×2 (10:40→12:34)
[2021-06-04] MEDS: SENNOSIDES/DOCUSATE COMBO (SENNA PLUS) TABLET (UD) PO SCH ×2 (12:18→21:13)
[2021-06-04] MEDS: ISOSORBIDE MONONITRATE 30 MG TAB.SR.24H (FP) PO SCH (12:18)
[2021-06-04] MEDS: MULTIVITAMINS (DAILY MVI) TABLET (FP) PO SCH (12:19)
[2021-06-04] MEDS: PANTOPRAZOLE 40 MG TABLET PO SCH (12:19)
[2021-06-04] MEDS: ENALAPRIL MALEATE 5 MG TABLET PO SCH (12:19)
[2021-06-04] MEDS ORDERED: DEXTROSE 5%-WATER - 50 ML IVPB ONE ×2 (16:35→23:47)
[2021-06-04] MEDS: CEFAZOLIN 2 GM in DEXTROSE 5%-WATER - 50 ML IVPB SCH ×2 (16:46→23:55)
[2021-06-04] MEDS: oxyCODONE HCL 5 MG TABLET PO PRN (19:07)
[2021-06-04] MEDS: ATORVASTATIN CA 40 MG TABLET (FP) PO SCH (21:14)
[2021-06-04] MEDS: oxyCODONE HCL 10 MG SUSTAINED ACTING TABLET PO SCH (21:14)
[2021-06-04] MEDS: ESCITALOPRAM OXALATE 10 MG TABLET PO SCH (21:14)
[2021-06-04] MEDS: MONTELUKAST NA 10 MG TABLET PO SCH (21:14)
[2021-06-04] MEDS: BUDESONIDE/FORMETEROL FUMARATE 80/4.5 mcg INHALER IH SCH (21:15)
[2021-06-04] MEDS ORDERED: PATIENT'S OWN MEDICATION (NON-FORMULARY) (Zolpidem Tartrate [Ambien] 10 MG Tablet) PO SCH (22:00)
[2021-06-05] MEDS: LEVOTHYROXINE NA 88 MCG TABLET (FP) PO SCH (06:03)
[2021-06-05] MEDS: oxyCODONE HCL 5 MG TABLET PO PRN ×2 (06:04→16:33)
[2021-06-05] MEDS: SENNOSIDES/DOCUSATE COMBO (SENNA PLUS) TABLET (UD) PO SCH ×2 (09:18→21:07)
[2021-06-05] MEDS: BUDESONIDE/FORMETEROL FUMARATE 80/4.5 mcg INHALER IH SCH ×2 (09:18→21:08)
[2021-06-05] MEDS: ASPIRIN 325 MG TABLET PO SCH (09:18)
[2021-06-05] MEDS: oxyCODONE HCL 10 MG SUSTAINED ACTING TABLET PO SCH ×2 (09:19→21:07)
[2021-06-05] MEDS: PANTOPRAZOLE 40 MG TABLET PO SCH (09:19)
[2021-06-05] MEDS: MULTIVITAMINS (DAILY MVI) TABLET (FP) PO SCH (09:19)
[2021-06-05] MEDS: ISOSORBIDE MONONITRATE 30 MG TAB.SR.24H (FP) PO SCH (09:19)
[2021-06-05] MEDS: ENALAPRIL MALEATE 5 MG TABLET PO SCH (09:20)
[2021-06-05 10:50] LABS: HEMATOCRIT 38.8 % (32.4-45.2); HEMOGLOBIN 12.4 GM/dL (10.7-15.3); MCH 28.4 pg (25.7-33.7); MCHC 31.9 g/dl (32.0-36.0); MEAN CELL VOLUME 89.1 fl (80-96); MEAN PLT VOLUME 7.7 fl (7.5-11.1); PLATELET COUNT 309 10^3/uL (134-434); RBC 4.36 M/mm3 (3.60-5.2); RDW 14.9 % (11.6-15.6); WHITE BLOOD COUNT 8.1 K/mm3 (4.0-10.0)
[2021-06-05] MEDS: ATORVASTATIN CA 40 MG TABLET (FP) PO SCH (21:07)
[2021-06-05] MEDS: ESCITALOPRAM OXALATE 10 MG TABLET PO SCH (21:07)
[2021-06-05] MEDS: MONTELUKAST NA 10 MG TABLET PO SCH (21:07)
[2021-06-06] MEDS: oxyCODONE HCL 5 MG TABLET PO PRN (03:47)
[2021-06-06] MEDS: LEVOTHYROXINE NA 88 MCG TABLET (FP) PO SCH (06:15)
[2021-06-06 09:24] VITALS: BP 99/51; PULSE 106; TEMP 99.3
[2021-06-06 09:38] LABS: HEMATOCRIT 34.3 % (32.4-45.2); HEMOGLOBIN 11.3 GM/dL (10.7-15.3); MEAN CELL VOLUME 87.8 fl (80-96); MEAN PLT VOLUME 7.7 fl (7.5-11.1); PLATELET COUNT 257 10^3/uL (134-434); RBC 3.91 M/mm3 (3.60-5.2); RDW 15.1 % (11.6-15.6); WHITE BLOOD COUNT 8.2 K/mm3 (4.0-10.0)
[2021-06-06 09:43] LABS: ALBUMIN 3.1 g/dl (3.4-5.0); BILIRUBIN,TOTAL 0.7 mg/dl (0.2-1); CALCIUM 8.7 mg/dl (8.5-10); CREATININE 0.8 mg/dl (0.55-1.3); TOT PROT 5.9 g/dl (6.4-8.2)
[2021-06-06] MEDS: SENNOSIDES/DOCUSATE COMBO (SENNA PLUS) TABLET (UD) PO SCH (10:00)
[2021-06-06] MEDS: ASPIRIN 325 MG TABLET PO SCH (10:00)
[2021-06-06] MEDS: ISOSORBIDE MONONITRATE 30 MG TAB.SR.24H (FP) PO SCH (10:00)
[2021-06-06] MEDS: oxyCODONE HCL 10 MG SUSTAINED ACTING TABLET PO SCH (10:00)
[2021-06-06] MEDS: PANTOPRAZOLE 40 MG TABLET PO SCH (10:00)
[2021-06-06] MEDS: ENALAPRIL MALEATE 5 MG TABLET PO SCH (10:00)
[2021-06-06] MEDS: BUDESONIDE/FORMETEROL FUMARATE 80/4.5 mcg INHALER IH SCH (10:11)
[2021-06-06] MEDS: MULTIVITAMINS (DAILY MVI) TABLET (FP) PO SCH (10:11)
== END 2021-06-06 11:42 | disposition home health service (06) ==
LOC: FASUSAT 05:52 → FM/S 11:46 → FASUSAT 06-06 11:42
PROVIDERS: ATTEND Orthopaedic Surgery
PROC: 0SRC0J9 Replacement of Right Knee Joint with Synthetic Substitute, Cemented, Open Approach (ICD-10-PCS; 2021-06-04)
PROC: 8E0YXBZ Computer Assisted Procedure of Lower Extremity (ICD-10-PCS; 2021-06-04)
PROC: 0SRC0J9 Replacement of Right Knee Joint with Synthetic Substitute, Cemented, Open Approach (ICD-10-PCS; principal; 2021-06-04 08:35)
DX: M17.11 Unilateral primary osteoarthritis, right knee (principal); E11.9 Type 2 diabetes mellitus without complications; E03.9 Hypothyroidism, unspecified
CPT/HCPCS: 20985; 27447; C1776; 36415; 73560-TC-RT-FY; 80053; 82962; 85027; 94760; 97010-GP; 97116-GP; 97163-GP

== ENCOUNTER 2022-02-26 04:34 | Day surgery (SDC) | payer BC ==
[2022-02-24 10:45] VITALS: BMI 33.5
[~2022-02-26 04:34] MED LIST: ACETAMINOPHEN 325 MG TABLET (FP) PO PRN; BSS (NA/CA/MG/K) BALANCED SALT SOLUTION OPHTH SOLN 15 ML BOTTLE OD ONE; CHONDROITIN SU A/HYALUR SOD 1 KIT IO ONE; CYCLOPENTOLATE HCL 1% OPHTH SOLN 2 ML BOTTLE OP SCH; EPINEPHrine/PF 1 MG/1 ML (1:1,000) AMPULE SQ ONE; KETOROLAC TROMETHAMINE 0.5% EYE DROP 1 DROP DROPS OP SCH; LIDOCAINE 1% P/F 10 MG/ML VIAL PNB ONE; OFLOXACIN 0.3% OPHTHALMIC SOLUTION 5 ML BOTTLE OP SCH; PHENYLEPHRINE 2.5% OPHTH SOLN 15 ML BOTTLE OP SCH; POVIDONE-IODINE 5% OPHTHALMIC PREP 30 ML SOLUTION OD ONE; TETRACAINE 0.5% OPHTH SOLN 2 ML BOTTLE OD ONE; TROPICAMIDE 1% OPHTH SOLN 15 ML BOTTLE OP SCH
[2022-02-26] MEDS ORDERED: POVIDONE-IODINE 5% OPHTHALMIC PREP 30 ML SOLUTION ONE (07:19)
[2022-02-26] MEDS ORDERED: TETRACAINE 0.5% OPHTH SOLN 2 ML BOTTLE ONE (07:19)
[2022-02-26] MEDS ORDERED: EPINEPHrine/PF 1 MG/1 ML (1:1,000) AMPULE ONE (07:19)
[2022-02-26] MEDS ORDERED: PHENYLEPHRINE 2.5% OPHTH SOLN 15 ML BOTTLE ONE (07:38)
[2022-02-26] MEDS ORDERED: TROPICAMIDE 1% OPHTH SOLN 15 ML BOTTLE ONE (07:38)
[2022-02-26] MEDS ORDERED: KETOROLAC TROMETHAMINE 0.5% EYE DROP 1 DROP DROPS ONE (07:38)
[2022-02-26] MEDS ORDERED: CYCLOPENTOLATE HCL 1% OPHTH SOLN 2 ML BOTTLE ONE (07:38)
[2022-02-26] MEDS ORDERED: OFLOXACIN 0.3% OPHTHALMIC SOLUTION 5 ML BOTTLE ONE (07:39)
[2022-02-26 07:50] VITALS: RESP 18
[2022-02-26] MEDS ORDERED: TROPICAMIDE 1% OPHTH SOLN 15 ML BOTTLE OS ONE ×3 (07:50→08:05)
[2022-02-26] MEDS ORDERED: PHENYLEPHRINE 2.5% OPHTH SOLN 15 ML BOTTLE OS ONE ×3 (07:50→08:05)
[2022-02-26] MEDS ORDERED: KETOROLAC TROMETHAMINE 0.5% EYE DROP 1 DROP DROPS OS ONE ×3 (07:50→08:05)
[2022-02-26] MEDS ORDERED: CYCLOPENTOLATE HCL 1% OPHTH SOLN 2 ML BOTTLE OS ONE ×3 (07:50→08:05)
[2022-02-26] MEDS ORDERED: OFLOXACIN 0.3% OPHTHALMIC SOLUTION 5 ML BOTTLE OS ONE ×3 (07:50→08:05)
[2022-02-26] MEDS ORDERED: MIDAZOLAM HCL 2 MG/2 ML SINGLE DOSE VIAL ONE (09:40)
[2022-02-26] MEDS ORDERED: TETRACAINE 0.5% OPHTH SOLN 2 ML BOTTLE TP ONE (09:40)
[2022-02-26] MEDS ORDERED: POVIDONE-IODINE 5% OPHTHALMIC PREP 30 ML SOLUTION OS ONE (09:41)
[2022-02-26] MEDS ORDERED: BSS (NA/CA/MG/K) BALANCED SALT SOLUTION OPHTH SOLN 15 ML BOTTLE OS ONE (09:47)
[2022-02-26] MEDS ORDERED: LIDOCAINE HCL 1% PRESERVATIVE FREE - 30ML VIAL IO ONE (09:48)
[2022-02-26] MEDS ORDERED: CHONDROITIN SU A/HYALUR SOD 1 KIT IO ONE (09:48)
[2022-02-26] MEDS ORDERED: EPINEPHrine/PF 1 MG/1 ML (1:1,000) AMPULE SQ ONE (09:55)
[2022-02-26 11:34] VITALS: BP 122/72; PULSE 86; TEMP 96.9
== END 2022-02-26 11:10 | disposition home or self-care (01) ==
LOC: JASU-SURG 04:34
PROVIDERS: ATTEND Ophthalmology
PROC: 08RK3JZ Replacement of Left Lens with Synthetic Substitute, Percutaneous Approach (ICD-10-PCS; principal; 2022-02-26 09:15)
DX: H26.9 Unspecified cataract (principal)
CPT/HCPCS: V2632

== ENCOUNTER 2022-05-14 04:08 | Day surgery (SDC) | payer BC ==
[2022-05-09 13:06] VITALS: BMI 33.5
[~2022-05-14 04:08] MED LIST changes: -BSS (NA/CA/MG/K) BALANCED SALT SOLUTION OPHTH SOLN 15 ML BOTTLE OD ONE; -CHONDROITIN SU A/HYALUR SOD 1 KIT IO ONE; -EPINEPHrine/PF 1 MG/1 ML (1:1,000) AMPULE SQ ONE; -LIDOCAINE 1% P/F 10 MG/ML VIAL PNB ONE; -POVIDONE-IODINE 5% OPHTHALMIC PREP 30 ML SOLUTION OD ONE; -TETRACAINE 0.5% OPHTH SOLN 2 ML BOTTLE OD ONE
[2022-05-14] MEDS ORDERED: KETOROLAC TROMETHAMINE 0.5% EYE DROP 1 DROP DROPS ONE (08:18)
[2022-05-14] MEDS ORDERED: CYCLOPENTOLATE HCL 1% OPHTH SOLN 2 ML BOTTLE ONE (08:18)
[2022-05-14] MEDS ORDERED: PHENYLEPHRINE 2.5% OPTHALMIC DROP 2ML BOTTLE ONE (08:18)
[2022-05-14] MEDS ORDERED: TROPICAMIDE 1% OPHTH SOLN 15 ML BOTTLE ONE (08:18)
[2022-05-14] MEDS ORDERED: OFLOXACIN 0.3% OPHTHALMIC SOLUTION 5 ML BOTTLE ONE (08:18)
[2022-05-14] MEDS ORDERED: OFLOXACIN 0.3% OPHTHALMIC SOLUTION 5 ML BOTTLE OD ONE ×3 (08:30→08:40)
[2022-05-14] MEDS ORDERED: CYCLOPENTOLATE HCL 1% OPHTH SOLN 2 ML BOTTLE OD ONE ×3 (08:30→08:40)
[2022-05-14] MEDS ORDERED: PHENYLEPHRINE 2.5% OPHTH SOLN 15 ML BOTTLE OD ONE ×3 (08:30→08:40)
[2022-05-14] MEDS ORDERED: KETOROLAC TROMETHAMINE 0.5% EYE DROP 1 DROP DROPS OD ONE ×3 (08:30→08:40)
[2022-05-14] MEDS ORDERED: TROPICAMIDE 1% OPHTH SOLN 15 ML BOTTLE OD ONE ×3 (08:30→08:40)
[2022-05-14] MEDS ORDERED: MIDAZOLAM HCL 2 MG/2 ML SINGLE DOSE VIAL ONE (10:09)
[2022-05-14] MEDS ORDERED: TETRACAINE 0.5% OPHTH SOLN 2 ML BOTTLE OD ONE (10:20)
[2022-05-14] MEDS ORDERED: POVIDONE-IODINE 5% OPHTHALMIC PREP 30 ML SOLUTION OD ONE (10:21)
[2022-05-14] MEDS ORDERED: BSS (NA/CA/MG/K) BALANCED SALT SOLUTION OPHTH SOLN 15 ML BOTTLE IO ONE (10:28)
[2022-05-14] MEDS ORDERED: LIDOCAINE HCL 1% PRESERVATIVE FREE - 30ML VIAL IO ONE (10:29)
[2022-05-14] MEDS ORDERED: CHONDROITIN SU A/HYALUR SOD 1 KIT IO ONE (10:30)
[2022-05-14] MEDS ORDERED: EPINEPHrine/PF 1 MG/1 ML (1:1,000) AMPULE SQ ONE (10:36)
[2022-05-14] MEDS ORDERED: ACETAMINOPHEN 325 MG TABLET (FP) ONE (11:10)
[2022-05-14 11:17] VITALS: BP 121/81; PULSE 73; RESP 20; TEMP 97.8
== END 2022-05-14 12:10 | disposition home or self-care (01) ==
LOC: JASU-SURG 04:08
PROVIDERS: ATTEND Ophthalmology
PROC: 08RJ3JZ Replacement of Right Lens with Synthetic Substitute, Percutaneous Approach (ICD-10-PCS; principal; 2022-05-14 10:00)
DX: H26.9 Unspecified cataract (principal)
CPT/HCPCS: V2632

== ENCOUNTER 2022-12-06 09:05 | Emergency (ER) | payer BC ==
[2022-12-06 09:16] VITALS: BP 131/82; PULSE 98; RESP 18; TEMP 97.3; BMI 32.5
[2022-12-06 12:01] LABS: BASO % 0.2 % (0-2.0); EOS % 0.3 % (0-4.5); HEMATOCRIT 44.8 % (32.4-45.2); HEMOGLOBIN 14.8 GM/dL (10.7-15.3); MCH 28.7 pg (25.7-33.7); MEAN CELL VOLUME 86.8 fl (80-96); MEAN PLT VOLUME 7.7 fl (7.5-11.1); MONO % 7.8 % (3.8-10.2); NEUT % 69.7 % (42.8-82.8); PLATELET COUNT 261 10^3/uL (134-434); RBC 5.16 M/mm3 (3.60-5.2); RDW 13.1 % (11.6-15.6); WHITE BLOOD COUNT 5.9 K/mm3 (4.0-10.0)
[2022-12-06 12:08] LABS: INR 1.02 (0.83-1.09); PROTHROMBIN TIME (PATIENT) 11.8 SEC (9.7-13.0)
[2022-12-06 12:11] LABS: ACTIVATED PTT 30.4 SECONDS (25.2-36.5)
[2022-12-06 12:18] LABS: POTASSIUM 3.9 mmol/L (3.5-5.1)
[2022-12-06 12:22] LABS: ALBUMIN 4.3 g/dl (3.4-5.0); BLOOD UREA NITROGEN 8.7 mg/dL (7-18); CALCIUM 9.7 mg/dL (8.5-10.1)
[2022-12-06 12:23] LABS: MAGNESIUM 2.2 mg/dL (1.8-2.4)
[2022-12-06 12:25] LABS: CREATININE 0.9 mg/dL (0.55-1.3)
[2022-12-06 12:27] LABS: BILIRUBIN,TOTAL 0.8 mg/dL (0.2-1); TOT PROT 7.7 g/dl (6.4-8.2)
== END 2022-12-06 13:14 | disposition left against medical advice (07) ==
LOC: JER 09:05
DX: R07.89 Other chest pain (principal); M54.9 Dorsalgia, unspecified; R55 Syncope and collapse; R42 Dizziness and giddiness; W18.39XA Other fall on same level, initial encounter
CPT/HCPCS: 36415; 71045-TC-FY; 80053; 82962; 83735; 84484; 85025; 85610; 85730; 93005; 93010; 99285-25

== ENCOUNTER 2023-04-04 03:15 | Emergency (ER) | payer BC ==
[2023-04-04 03:26] VITALS: BP 113/76; PULSE 74; RESP 18; TEMP 97.6; BMI 29.0
[2023-04-04] MEDS ORDERED: FLUORESCEIN NA 1 EA STRIP ONE (04:13)
[2023-04-04] MEDS ORDERED: TETRACAINE 0.5% OPHTH SOLN 2 ML BOTTLE ONE (04:13)
== END 2023-04-04 04:20 | disposition home or self-care (01) ==
LOC: JER 03:15
DX: H10.9 Unspecified conjunctivitis (principal); H57.89 Other specified disorders of eye and adnexa
CPT/HCPCS: 99283-25

== ENCOUNTER 2023-05-09 15:25 | Emergency (ER) | payer BC ==
[2023-05-09 15:29] VITALS: BP 105/75; PULSE 77; RESP 18; TEMP 98.4; BMI 30.9
[2023-05-09] MEDS ORDERED: ACETAMINOPHEN 500 MG TABLET (FP) PO ONE (17:29)
[2023-05-09] MEDS ORDERED: ACETAMINOPHEN 500 MG TABLET (FP) ONE (17:38)
[2023-05-09 18:09] LABS: THROAT:GRP A STREP NOT DETECTED (NOTDETECTED)
== END 2023-05-09 18:56 | disposition home or self-care (01) ==
LOC: JERFT 15:25
DX: J06.9 Acute upper respiratory infection, unspecified (principal); B34.9 Viral infection, unspecified; Z20.822 Contact with and (suspected) exposure to COVID-19
CPT/HCPCS: 0241U-QW; 71046-TC-FY; 87651; 99284-25

== ENCOUNTER 2024-01-30 06:15 | Emergency (ER) | payer BC ==
[2024-01-30 06:26] VITALS: BP 117/76; PULSE 75; RESP 18; TEMP 97.6; BMI 32.5
[2024-01-30] MEDS ORDERED: ACETAMINOPHEN 500 MG TABLET (FP) ONE (07:31)
[2024-01-30] MEDS: ACETAMINOPHEN 500 MG TABLET (FP) PO ONE (07:38)
== END 2024-01-30 09:28 | disposition home or self-care (01) ==
LOC: JER 06:15
DX: M19.071 Primary osteoarthritis, right ankle and foot (principal); M77.31 Calcaneal spur, right foot; R20.0 Anesthesia of skin; R20.2 Paresthesia of skin
CPT/HCPCS: 73610-TC-RT-FY; 73630-TC-RT-FY; 99283-25

== ENCOUNTER 2024-02-22 13:05 | Emergency (ER) | payer BC ==
[2024-02-22 13:15] VITALS: BP 108/78; PULSE 95; RESP 19; TEMP 98.6; BMI 32.1
[2024-02-22] MEDS ORDERED: DEXAMETHASONE SOD PHOSPHATE 10 MG/1 ML VIAL ONE (13:48)
[2024-02-22] MEDS ORDERED: FAMOTIDINE 20 MG TABLET ONE (13:48)
[2024-02-22] MEDS: DEXAMETHASONE LIQUID 0.5 MG/5 ML PO ONE (13:53)
[2024-02-22] MEDS: FAMOTIDINE 20 MG TABLET PO ONE (13:53)
== END 2024-02-22 14:34 | disposition home or self-care (01) ==
LOC: JERFT 13:05
DX: L50.0 Allergic urticaria (principal); R21 Rash and other nonspecific skin eruption; R11.0 Nausea
CPT/HCPCS: 99283-25

== ENCOUNTER 2024-02-24 01:36 | Emergency (ER) | payer BC ==
[2024-02-24 01:43] VITALS: BP 120/54; PULSE 92; RESP 20; TEMP 97.5; BMI 32.1
[2024-02-24] MEDS ORDERED: diphenhydrAMINE HCL 25 MG CAPSULE (FP) PO ONE (01:57)
[2024-02-24] MEDS ORDERED: FAMOTIDINE 20 MG TABLET ONE (01:57)
[2024-02-24] MEDS ORDERED: DEXAMETHASONE 4 MG TABLET (FP) ONE (01:58)
[2024-02-24] MEDS: DEXAMETHASONE 4 MG TABLET (FP) PO ONE (02:00)
[2024-02-24] MEDS: diphenhydrAMINE HCL 25 MG CAPSULE (FP) PO ONE (02:00)
[2024-02-24] MEDS: FAMOTIDINE 10 MG TABLET PO ONE (02:00)
== END 2024-02-24 02:51 | disposition home or self-care (01) ==
LOC: JER 01:36
DX: L50.9 Urticaria, unspecified (principal)
CPT/HCPCS: 99283-25

== ENCOUNTER 2024-02-28 08:01 | Emergency (ER) | payer BC ==
[2024-02-28 08:09] VITALS: BP 136/79; PULSE 93; RESP 18; TEMP 98; BMI 32.1
[2024-02-28] MEDS ORDERED: DEXAMETHASONE SOD PHOSPHATE 10 MG/1 ML VIAL ONE (08:33)
[2024-02-28] MEDS: DEXAMETHASONE SOD PHOSPHATE 10 MG/1 ML VIAL IM ONE (08:46)
[2024-02-28] MEDS: hydrOXYzine HCL 10 MG/5 ML LIQUID BULK BOTTLE PO ONE (09:03)
[2024-02-28] MEDS: HYDROCORTISONE 1% TOPICAL OINT 30 GM TUBE TP ONE (09:03)
== END 2024-02-28 09:48 | disposition home or self-care (01) ==
LOC: JERFT 08:01
PROC: 3E023GC Introduction of Other Therapeutic Substance into Muscle, Percutaneous Approach (ICD-10-PCS; principal; 2024-02-28)
DX: R21 Rash and other nonspecific skin eruption (principal); L29.9 Pruritus, unspecified
CPT/HCPCS: 99284-25; J1100

== ENCOUNTER 2024-08-06 08:50 | Emergency (ER) | payer BC ==
[2024-08-06 08:57] VITALS: BP 121/76; PULSE 83; RESP 16; TEMP 98.1; BMI 30.9
[2024-08-06] MEDS ORDERED: ACETAMINOPHEN 500 MG TABLET (FP) ONE ×2 (09:27→09:28)
[2024-08-06] MEDS: ACETAMINOPHEN 500 MG TABLET (FP) PO ONE (09:30)
== END 2024-08-06 10:05 | disposition home or self-care (01) ==
LOC: JERFT 08:50
DX: M25.522 Pain in left elbow (principal); W22.8XXA Striking against or struck by other objects, initial encounter
CPT/HCPCS: 73070-TC-LT-FY; 99283-25